=== PATIENT | male | born 1985 | race Two or more races ===

== ENCOUNTER 2018-10-21 00:15 | Emergency (ER) | payer OTHER ==
[2018-10-21 00:51] VITALS: BP 111/73; PULSE 92; TEMP 99; BMI 26.6
[2018-10-21] MEDS ORDERED: IBUPROFEN 400 MG TABLET (FP) PO ONE ×2 (00:56→01:01)
[2018-10-21] MEDS ORDERED: DEXAMETHASONE SOD PHOSPHATE 10 MG/1 ML VIAL ONE (01:00)
[2018-10-21] MEDS ORDERED: DEXAMETHASONE LIQUID 0.5 MG/5 ML 240 ML BULK BOTTLE PO ONE (01:01)
[2018-10-21] MEDS ORDERED: PENICILLIN G BENZATHINE 1,200,000 UNIT/2 ML PFS IM ONE ×2 (01:27→01:47)
--- NOTE | 2018-10-21 01:39 | PDOC ---
History of Present Illness - General Chief Complaint: Sore Throat Stated Complaint: THROAT PAAIN Time Seen by Provider: 10/21/18 00:35 History Source: Patient Exam Limitations: No Limitations Past History - Past Medical History Allergies/Adverse Reactions: Allergies Allergy/AdvReac Type Severity Reaction Status Date / Time sowmya Allergy Verified 10/21/18 00:43 Home Medications: Ambulatory Orders Ibuprofen 600 mg PO ACDIN 7 Days #21 tablet 08/01/18 Asthma: Yes COPD: No - Immunization History Immunization Up to Date: Yes - Suicide/Smoking/Psychosocial Hx Smoking History: Current every day smoker Have you smoked in the past 12 months: Yes Number of Cigarettes Smoked Daily: 5 Information on smoking cessation initiated: No Hx Alcohol Use: No Drug/Substance Use Hx: No Substance Use Type: None *Physical Exam - Vital Signs Last Vital Signs Temp Pulse Resp BP Pulse Ox 99.0 F 92 H 20 111/73 97 10/21/18 00:43 10/21/18 00:43 10/21/18 00:43 10/21/18 00:43 10/21/18 00:43 - Physical Exam General Appearance: No: Apparent Distress HEENT: positive: Pharyngeal Erythema, Tonsillar Erythema, Other (Slight fluid noted behind R ear TM, no erythema of ear, no d/c from ears). negative: Muffled /Hoarse voice, Tonsillar Exudate, Nasal Congestion, Rhinorrhea, Sinus Tenderness Neck: positive: Supple Respiratory/Chest: positive: Lungs Clear, Normal Breath Sounds. negative: Respiratory Distress Cardiovascular: positive: Regular Rhythm, Regular Rate, S1, S2. negative: Murmur Neurologic: positive: Alert, Normal Mood/Affect Moderate Sedation - Procedure Monitoring Vital Signs: Procedure Monitoring Vital Signs Temperature 99.0 F 10/21/18 00:43 Pulse Rate 92 H 10/21/18 00:43 Respiratory Rate 20 10/21/18 00:43 Blood Pressure 111/73 10/21/18 00:43 O2 Sat by Pulse Oximetry (%) 97 10/21/18 00:43 ED Treatment Course - Medications Given in the ED: ED Medications Discontinued Medications Generic Name Dose Route Start Last Admin Trade Name Freq PRN Reason Stop Dose Admin Dexamethasone 10 mg 10/21/18 01:01 10/21/18 01:04 Decadron Liquid - PO 10/21/18 01:02 10 mg ONCE ONE Administration Ibuprofen 800 mg 10/21/18 00:56 10/21/18 01:04 Motrin - PO 10/21/18 00:57 800 mg ONCE ONE Administration Medical Decision Making - Medical Decision Making 33 y/o M with hx of asthma presents with sore throat x 2 along with mild productive cough and R ear pain. Denies fever, rhinorrhea, congestion, sob, cp, abd pain, n/v/d. Patient found to be strep positive - treated with Motrin, Decadron and IM Penicillin Slight fluid behind R ear TM - unlikely bacterial otitis media; recommended saline nasal spray Stable for dc 10/21/18 01:35 *DC/Admit/Observation/Transfer Diagnosis at time of Disposition: Strep pharyngitis - Discharge Dispostion Disposition: HOME Condition at time of disposition: Stable Decision to Admit order: No - Referrals Referrals: Rowdy Delgado [Primary Care Provider] - 2 Days - Patient Instructions Printed Discharge Instructions: DI for Strep Throat Additional Instructions: Thank you for choosing [facility]. It was a pleasure taking care of you. You were treated here for strep throat Take Motrin 600 mg every 6 hours as needed for pain Continue salt water gargles You were also noted with small amount of fluid behind right ear - recommend saline nasal spray Follow-up with your primary care doctor in 2 days Return to the Emergency Department if your symptoms worsen or persist or have other concerning symptoms. - Post Discharge Activity
--- NOTE | 2018-10-21 01:51 | PDOC ---
*Physical Exam - Vital Signs Last Vital Signs Temp Pulse Resp BP Pulse Ox 99.0 F 92 H 20 111/73 97 10/21/18 00:43 10/21/18 00:43 10/21/18 00:43 10/21/18 00:43 10/21/18 00:43 ED Treatment Course - Medications Given in the ED: ED Medications Discontinued Medications Generic Name Dose Route Start Last Admin Trade Name Bi PRN Reason Stop Dose Admin Dexamethasone 10 mg 10/21/18 01:01 10/21/18 01:04 Decadron Liquid - PO 10/21/18 01:02 10 mg ONCE ONE Administration Ibuprofen 800 mg 10/21/18 00:56 10/21/18 01:04 Motrin - PO 10/21/18 00:57 800 mg ONCE ONE Administration Penicillin G Benzathine 1,200,000 unit 10/21/18 01:27 10/21/18 01:48 Bicillin L-A - IM 10/21/18 01:28 1,200,000 unit ONCE ONE Administration Medical Decision Making - Medical Decision Making 10/21/18 01:50 Agree with details of exam as documented by KINZA Linares Discussed case and plan with KINZA Linares *DC/Admit/Observation/Transfer Diagnosis at time of Disposition: Strep pharyngitis - Discharge Dispostion Disposition: HOME Condition at time of disposition: Stable - Referrals Referrals: Rowdy Delgado [Primary Care Provider] - 2 Days - Patient Instructions Printed Discharge Instructions: DI for Strep Throat Additional Instructions: Thank you for choosing [facility]. It was a pleasure taking care of you. You were treated here for strep throat Take Motrin 600 mg every 6 hours as needed for pain Continue salt water gargles You were also noted with small amount of fluid behind right ear - recommend saline nasal spray Follow-up with your primary care doctor in 2 days Return to the Emergency Department if your symptoms worsen or persist or have other concerning symptoms. - Post Discharge Activity
== END 2018-10-21 01:54 | disposition home or self-care (01) ==
LOC: JER 00:15
DX: J02.0 Streptococcal pharyngitis (principal)
CPT/HCPCS: 87880; 96372; 99282-25

== ENCOUNTER 2019-01-23 19:12 | Emergency (ER) | payer OTHER ==
[2019-01-23 19:25] VITALS: BP 144/90; PULSE 74; TEMP 98.2; BMI 25.7
--- NOTE | 2019-01-23 19:26 | PDOC ---
Rapid Medical Evaluation Time Seen by Provider: 01/23/19 19:21 Medical Evaluation: Allergies Allergy/AdvReac Type Severity Reaction Status Date / Time kiwi Allergy Verified 10/21/18 00:43 01/23/19 19:21 This patient had brief in-person evaluation in triage cc: back pain x 5 days states pain in lower back now up to mid back denies injury, or heavy lifting PE: NAD unlabored breathing no mid spinal tenderness orders: u/a This patient will proceed to the Ed for further evaluation Discharge Disposition - Diagnosis Back pain - Referrals - Patient Instructions - Post Discharge Activity
[2019-01-23] MEDS ORDERED: KETOROLAC TROMETHAMINE 60 MG/2 ML VIAL IM ONE (20:48)
[2019-01-23] MEDS ORDERED: KETOROLAC TROMETHAMINE 60 MG/2 ML VIAL ONE (20:49)
--- NOTE | 2019-01-23 20:52 | PDOC ---
History of Present Illness - General Chief Complaint: Back Pain Stated Complaint: BACK PAIN Time Seen by Provider: 01/23/19 19:21 - History of Present Illness Initial Comments: 01/23/19 20:49 33-year-old male without comorbidities presents for evaluation of left-sided mid and lower back pain with posterior lateral leg radicular symptoms 5 days no trauma, systemic symptoms or loss of bowel or bladder function. Past History - Past Medical History Allergies/Adverse Reactions: Allergies Allergy/AdvReac Type Severity Reaction Status Date / Time lazarowi Allergy Verified 10/21/18 00:43 Home Medications: Ambulatory Orders Ibuprofen 600 mg PO ACDIN 7 Days #21 tablet 08/01/18 Cyclobenzaprine HCl [Flexeril 10 mg] 10 mg PO HS PRN #10 tablet 01/23/19 Ibuprofen [Motrin -] 600 mg PO TID #30 tablet 01/23/19 Asthma: Yes COPD: No - Immunization History Immunization Up to Date: Yes - Suicide/Smoking/Psychosocial Hx Smoking History: Current every day smoker Have you smoked in the past 12 months: Yes Number of Cigarettes Smoked Daily: 2 Information on smoking cessation initiated: No Hx Alcohol Use: No Drug/Substance Use Hx: No Substance Use Type: None Review of Systems - Review of Systems Constitutional: No: Fever Musculoskeletal: Yes: Back Pain *Physical Exam - Vital Signs Last Vital Signs Temp Pulse Resp BP Pulse Ox 98.2 F 74 18 144/90 98 01/23/19 19:22 01/23/19 19:22 01/23/19 19:22 01/23/19 19:22 01/23/19 19:22 - Physical Exam Comments: 01/23/19 20:50 Thoracic and lumbar spine skin color and temperature are normal. Range of motion is slightly decreased. There is no midline tenderness. Moderate left- sided Thoracic go and lumbar musculature spasm and tenderness. Negative on the right. 5 out of 5 strength in bilateral lower extremities without gross sensory motor deficits positive straight leg raise test on the left negative on the right neurovascularly intact. Medical Decision Making - Medical Decision Making 01/23/19 20:51 We'll treat pain with Toradol in the emergency room home Motrin and Flexeril follow-up with orthopedics *DC/Admit/Observation/Transfer Diagnosis at time of Disposition: Back pain - Discharge Dispostion Disposition: HOME Condition at time of disposition: Stable Decision to Admit order: No - Prescriptions Prescriptions: Cyclobenzaprine HCl [Flexeril 10 mg] 10 mg PO HS PRN #10 tablet PRN Reason: Muscle Spasms Ibuprofen [Motrin -] 600 mg PO TID #30 tablet - Referrals Referrals: Grady Lundberg [Primary Care Provider] - Donnell Angulo MD [Staff Physician] - - Patient Instructions Printed Discharge Instructions: Low Back Pain, DI for Low Back Pain, DI for Thoracic Back Pain, Thoracic Back Pain Additional Instructions: Current to the emergency room for worsening symptoms. Please follow-up with orthopedic spine surgery in 1-2 days for further evaluation and treatment options. Do not take the Motrin tonight. Start the Motrin tomorrow one tablet 3 times a day with food. He was given an injection of a long-acting anti- inflammatory which will help with her pain. The muscle relaxers one tablet before bedtime and will make you sleepy he may start this medication tonight. - Post Discharge Activity
[2019-01-23 20:53] LABS: PH,URINE 6.5 (5.0-8.0); URINE APPEARANCE CLOUDY; URINE BILIRUBIN NEGATIVE (NEGATIVE); URINE COLOR YELLOW; URINE GLUCOSE (UA) NEGATIVE (NEGATIVE); URINE KETONE TRACE (NEGATIVE); URINE LEUK ESTERASE NEGATIVE (NEGATIVE); URINE NITRITE NEGATIVE (NEGATIVE); URINE PROTEIN NEGATIVE (NEGATIVE)
== END 2019-01-23 20:57 | disposition home or self-care (01) ==
LOC: JERFT 19:12
PROC: 3E0233Z Introduction of Anti-inflammatory into Muscle, Percutaneous Approach (ICD-10-PCS; principal; 2019-01-23)
DX: M62.830 Muscle spasm of back (principal); M54.5 Low back pain
CPT/HCPCS: 81003; 96372; 99281-25

== ENCOUNTER 2022-07-01 19:58 | Emergency (ER) | payer OTHER ==
[2022-07-01 20:27] VITALS: BP 163/87; PULSE 87; RESP 20; TEMP 98.2; BMI 33.3
== END 2022-07-01 22:16 | disposition home or self-care (01) ==
LOC: JER 19:58 → JERFT 19:58
DX: S40.022A Contusion of left upper arm, initial encounter (principal); Y08.89XA Assault by other specified means, initial encounter
CPT/HCPCS: 99281-25